=== PATIENT | female | born 1930 | race Caucasian/White ===

== ENCOUNTER 2017-07-09 09:00 | Inpatient (IN) | payer OTHER, BC ==
--- NOTE | 2017-07-09 09:16 | PDOC ---
Attending Attestation - HPI HPI: 07/09/17 10:07 The patient is an 86 year old female, with a significant past medical history of Afib, HTN, HLD, and pleural effusion, who presents with SOB and nausea since this morning. She reportedly woke up this morning to use the bathroom and when she noticed some increased SOB. She reports being able to walk several blocks using her walker before experiencing SOB. No recent travel or sick contacts. Reports a recent procedure about 2 months ago that would "help prevent a stroke. " PCP: Dr. Yang [employer] Field Service Technician: Dr. Vitale - Physicial Exam PE: 07/09/17 10:09 Vitals: Triage vital signs reviewed General Appearance: No acute distress, well nourished, well developed Head: Atraumatic Neck: Supple; No nuchal rigidity Chest Wall: Nontender Cardiac: Regular rate and rhythm, no murmurs, no rubs, no gallops Lungs: Clear to auscultation bilateral, good air movement bilaterally Abdomen: Soft, nondistended, normal bowel sounds, nontender to palpation Genitourinary: Rectal: Exam deferred Extremities: (+) 1+ edema to bilateral lower extremity. Full range of motion to all extremities, no cyanosis, clubbing Skin: Warm and dry, no rashes or lesions, no rash, no petechiae Neuro: AOX3; Cranial Nerves 2-12 grossly intact, Strength intact to all extremities, Sensation intact to all extremities, gait normal Psych: Normal mood, normal affect - Medical Decision Making 07/09/17 10:09 Documentation prepared by Deanna Manning, acting as medical technologist prn for Elie Wiley MD, 07/09/17 11:12 Dr. Arriaga was paged requesting a call back to discuss admission. <Deanna Manning - Last Filed: 07/09/17 11:12> - Resident Resident Name: Reyna Espinosa - ED Attending Attestation I have performed the following: I have examined & evaluated the patient, The case was reviewed & discussed with the resident, I agree w/resident's findings & plan, Exceptions are as noted - Medical Decision Making 07/09/17 14:49 History and examination consistent with CHF exacerbation. Given that patient is very symptomatic not on any diuretics we'll treat with 20 mg Lasix observe in hospital overnight and reassess <Inez,Elie - Last Filed: 07/09/17 14:49>
--- NOTE | 2017-07-09 09:57 | PDOC ---
History of Present Illness - General Chief Complaint: Shortness of Breath Stated Complaint: SOB Time Seen by Provider: 07/09/17 09:06 - History of Present Illness Initial Comments: 07/09/17 09:45 86yo woman with PMH of Afib, HTN, HLD, pleural effusion who presents with sob and nausea since this morning. No emesis. She woke up this morning to use the bathroom and when getting back into bed she reports dyspnea and accessory muscle use. Reports mild dry cough. Denies fever, chills, CP, ELIAS. No diarrhea or melena. At baseline she can walk several blocks using her walker without dyspnea. No recent travel or sick contacts. PSx: Watchman procedure approximately 2 months ago PCP: Dr. Yang Cards: Dr. Vitale Past History - Travel Traveled outside of the country in the last 30 days: No Close contact w/someone who was outside of country & ill: No - Past Medical History Allergies/Adverse Reactions: Allergies Allergy/AdvReac Type Severity Reaction Status Date / Time Penicillins Allergy Verified 07/09/17 09:30 Home Medications: Ambulatory Orders Acetaminophen 650 mg PO ASDIR 07/09/17 Amiodarone HCl 100 mg PO DAILY 07/09/17 Amlodipine Besylate 5 mg PO DAILY 07/09/17 Aspirin [ASA -] 81 mg PO DAILY 07/09/17 Bisacodyl [Dulcolax -] 5 mg PO ONCE 07/09/17 Cholecalciferol (Vitamin D3) [Vitamin D3] 50,000 unit PO MONTHLY 07/09/17 Clopidogrel Bisulfate [Clopidogrel] 75 mg PO DAILY 07/09/17 Cyanocobalamin (Vitamin B-12) [Vitamin B-12] 1,000 mcg PO DAILY 07/09/17 Ferrous Sulfate 325 mg PO BID 07/09/17 Folic Acid 1 mg PO DAILY 07/09/17 Levothyroxine [Synthroid -] 25 mcg PO ASDIR 07/09/17 Mirtazapine 30 mg PO DAILY 07/09/17 Nebivolol HCl [Bystolic] 2.5 mg PO DAILY 07/09/17 Nystatin [Nyamyc] 1 appful TP ASDIR 07/09/17 Olmesartan Medoxomil 40 mg PO DAILY 07/09/17 Omeprazole 40 mg PO DAILY 07/09/17 Pravastatin Sodium [Pravachol (Nf)] 20 mg PO HS 07/09/17 Rivastigmine 1 each TD DAILY 07/09/17 Vit C/E/Zn/Coppr/Lutein/Zeaxan [Preservision Areds 2 Softgel] 1 each PO BID 12/19 Cardiac Disorders: Yes (A-FIB) COPD: No DVT: No HTN: Yes Hypercholesterolemia: Yes Liver Disease: Yes (PLEURAL EFFUSION) Other medical history: HYPONATREMIA - Surgical History Cardiac Surgery: Yes - Immunization History Immunization Up to Date: Yes - Suicide/Smoking/Psychosocial Hx Smoking History: Former smoker Have you smoked in the past 12 months: No If you are a former smoker, when did you quit?: 30YRS Information on smoking cessation initiated: No Hx Alcohol Use: No Drug/Substance Use Hx: No Substance Use Type: None Review of Systems - Review of Systems Able to Perform ROS?: Yes Respiratory: Yes: Symptoms reported, Cough All Other Systems: Reviewed and Negative *Physical Exam - Vital Signs Last Vital Signs Temp Pulse Resp BP Pulse Ox 98.4 F 74 16 153/55 81 L 07/09/17 09:30 07/09/17 09:30 07/09/17 09:30 07/09/17 09:30 07/09/17 09:30 - Physical Exam General Appearance: Yes: Nourished, Appropriately Dressed HEENT: positive: Normal ENT Inspection Neck: positive: Supple Respiratory/Chest: positive: Lungs Clear, Normal Breath Sounds. negative: Accessory Muscle Use Cardiovascular: positive: Regular Rhythm, Regular Rate, S1, S2. negative: JVD Vascular Pulses: Dorsalis-Pedis (R): 2+, Doralis-Pedis (L): 2+ Gastrointestinal/Abdominal: positive: Normal Bowel Sounds, Flat Extremity: positive: Normal Inspection Neurologic: positive: Alert, Normal Mood/Affect Heart Score/ECG Review - ECG Impressions Normal ECG: Yes Comment:: 07/09/17 10:29 NSR, rate 69, normal axis and intervals, no ischemic changes, QTc 450 ED Treatment Course - LABORATORY CBC & Chemistry Diagram: 07/09/17 09:10 07/09/17 09:10 Medical Decision Making - Medical Decision Making 07/09/17 09:58 86yo woman with presents with acute onset dyspnea and hypoxemia. She is requiring 4L O2 to maintain 93% pSa02. Will order CXR to r/o pulmonary etiology and basic cardiology work-up. -CXR -CMP, CBC -EKG, Trop, BNP 07/09/17 18:11 CXR revealed bilateral pleural effusions and changes consist with CHF exacerbation. Will give 20mg lasix for diuresis. Discussed with Dr. Barnes. Patient is symptomatic with CHF exacerbation, and will be admitted for further management. *DC/Admit/Observation/Transfer Diagnosis at time of Disposition: CHF exacerbation - Discharge Dispostion Condition at time of disposition: Stable Admit: Yes - Referrals - Patient Instructions - Post Discharge Activity
[2017-07-09 10:11] LABS: BASO % 0.5 % (0-2.0); EOS % 0.1 % (0-4.5); HEMATOCRIT 24.8 % (32.4-45.2); HEMOGLOBIN 8.1 GM/dL (10.7-15.3); LYMPH % 3.4 % (8-40); MCH 32.6 pg (25.7-33.7); MCHC 32.7 g/dl (32.0-36.0); MEAN CELL VOLUME 99.8 fl (80-96); MEAN PLT VOLUME 8.7 fl (7.5-11.1); MONO % 7.5 % (3.8-10.2); NEUT % 88.5 % (42.8-82.8); PLATELET COUNT 319 K/MM3 (134-434); RBC 2.49 M/mm3 (3.60-5.2); RDW 14.2 % (11.6-15.6); WHITE BLOOD COUNT 14.9 K/mm3 (4.0-10.0)
[2017-07-09 11:04] LABS: ALBUMIN 3.5 g/dl (3.4-5.0); ANION GAP 8 (8-16); BILIRUBIN,TOTAL 0.5 mg/dL (0.2-1.0); BLOOD UREA NITROGEN 20 mg/dL (7-18); CALCIUM 8.2 mg/dL (8.5-10.1); CHLORIDE 97 mmol/L (98-107); CO2 26 mmol/L (21-32); CREATININE 1.3 mg/dL (0.55-1.02); GLUCOSE,RANDOM 112 mg/dL (74-106); POTASSIUM 4.6 mmol/L (3.5-5.1); SGOT/AST 63 U/L (15-37); SGPT/ALT 65 U/L (12-78); SODIUM 131 mmol/L (136-145); TOT PROT 6.7 g/dl (6.4-8.2)
[2017-07-09 11:07] LABS: ALK PHOS 158 U/L (45-117)
[2017-07-09] MEDS ORDERED: FUROSEMIDE 40 MG/4 ML INJECTABLE VIAL IVPUSH ONE (11:20)
[2017-07-09] MEDS ORDERED: FUROSEMIDE 40 MG/4 ML INJECTABLE VIAL ONE (11:41)
--- NOTE | 2017-07-09 16:48 | CON.CARD ---
Consult Consult Specialty:: cardio Referred by:: rambo Reason for Consultation:: chf - History of Present Illness Chief Complaint: sob History of Present Illness: 86 yo female with sob. felt in USOH yesterday, no sob. then overnight when woke to urinate per usual routine, she was breathing heavy when going back to bed. then became more sob and could not sleep. no cp. admits to chicken soup in [facility] facility and roast beef for dinner--? if salty. felt upset stomach/nausea after denies melena/BRBPR. no palpitations urinated a lot after iv lasix here, no more sob PAF--s/p watchman few weeks ago moderate HTN HPL UGIB (duod ulcer) 05/20 PPM - Alcohol/Substance Use Hx Alcohol Use: No - Smoking History Smoking history: Former smoker Have you smoked in the past 12 months: No If you are a former smoker, when did you quit?: 30YRS Home Medications - Allergies Allergies/Adverse Reactions: Allergies Allergy/AdvReac Type Severity Reaction Status Date / Time Penicillins Allergy Verified 07/09/17 09:30 - Home Medications Home Medications: Ambulatory Orders Acetaminophen 650 mg PO ASDIR 07/09/17 Amiodarone HCl 100 mg PO DAILY 07/09/17 Amlodipine Besylate 5 mg PO DAILY 07/09/17 Aspirin [ASA -] 81 mg PO DAILY 07/09/17 Bisacodyl [Dulcolax -] 5 mg PO ONCE 07/09/17 Cholecalciferol (Vitamin D3) [Vitamin D3] 50,000 unit PO MONTHLY 07/09/17 Clopidogrel Bisulfate [Clopidogrel] 75 mg PO DAILY 07/09/17 Cyanocobalamin (Vitamin B-12) [Vitamin B-12] 1,000 mcg PO DAILY 07/09/17 Ferrous Sulfate 325 mg PO BID 07/09/17 Folic Acid 1 mg PO DAILY 07/09/17 Levothyroxine [Synthroid -] 25 mcg PO ASDIR 07/09/17 Mirtazapine 30 mg PO DAILY 07/09/17 Nebivolol HCl [Bystolic] 2.5 mg PO DAILY 07/09/17 Nystatin [Nyamyc] 1 appful TP ASDIR 07/09/17 Olmesartan Medoxomil 40 mg PO DAILY 07/09/17 Omeprazole 40 mg PO DAILY 07/09/17 Pravastatin Sodium [Pravachol (Nf)] 20 mg PO HS 07/09/17 Rivastigmine 1 each TD DAILY 07/09/17 Vit C/E/Zn/Coppr/Lutein/Zeaxan [Preservision Areds 2 Softgel] 1 each PO BID 12/19 Family Disease History - Family Disease History Family History: Denies (no known cmp) Review of Systems - Review of Systems Constitutional: denies: Chills, Fever Eyes: denies: Eye Pain HENT: denies: Nasal Congestion Neck: denies: Stiffness Cardiovascular: denies: Palpitations Respiratory: reports: Orthopnea, PND. denies: Wheezing Gastrointestinal: denies: Diarrhea, Rectal Bleeding Genitourinary: denies: Burning, Hematuria Musculoskeletal: denies: Muscle Pain Integumentary: denies: Rash Neurological: denies: Numbness, Seizure, Syncope Endocrine: denies: Excessive Sweating Hematology/Lymphatic: denies: Excessive Bleeding Vital Signs: Vital Signs Temperature 98.8 F 07/09/17 14:36 Pulse Rate 65 07/09/17 14:36 Respiratory Rate 20 07/09/17 14:36 Blood Pressure 126/44 07/09/17 14:36 O2 Sat by Pulse Oximetry (%) 92 L 07/09/17 13:20 Constitutional: Yes: Well Nourished, No Distress Eyes: No: Sclera Icterus HENT: No: Nasal Congestion Neck: No: Decreased ROM Respiratory: Yes: CTA Bilaterally, Diminished (bases), Rales (bases). No: Accessory Muscle Use, Wheezes Gastrointestinal: Yes: Normal Bowel Sounds. No: Distention, Hepatomegaly, Palpable Mass, Tenderness Cardiovascular: Yes: Regular Rate and Rhythm JVD: No Carotid Bruit: No PMI: Non-Displaced Heart Sounds: Yes: S1, S2. No: Gallop Murmur: Yes: Systolic Murmur (2/6 early DESI lusb). No: Diastolic Murmur Musculoskeletal: Yes: Other (No kyphosis) Extremities: No: Cool, Cyanosis Edema: No Peripheral Pulses: 2+ Left Carotid, 2+ Right Carotid, 2+ Left Doralis Pedis, 2+ Right Dorsalis Pedis Integumentary: No: Jaundice Neurological: Yes: Alert, Oriented (x3) Psychiatric: No: Agitated - Other Data Labs, Other Data: CBC, BMP 07/09/17 09:10 07/09/17 09:10 Troponin, BNP 07/09/17 07/09/17 09:10 09:10 Troponin I < 0.02 B-Natriuretic Peptide 7944.52 H Troponin, BNP 07/09/17 07/09/17 09:10 09:10 Troponin I < 0.02 B-Natriuretic Peptide 7944.52 H Selected Entries 07/09/17 07/09/17 09:30 13:20 O2 Sat by Pulse 81 L 92 L Oximetry (%) Oxygen Flow 4 Rate Laboratory Tests 07/09/17 07/09/17 07/09/17 09:10 09:10 09:10 WBC 14.9 H Hgb 8.1 L Plt Count 319 Sodium 131 L Potassium 4.6 Creat Clearance w eGFR 38.84 AST 63 H ALT 65 B-Natriuretic Peptide 7944.52 H Assessment/Plan Echo 12/2016: 1. The left ventricular size is normal. 2. Overall left ventricular systolic function is normal with, an EF between 55 - 65 %. 3. The diastolic filling pattern is normal. 4. No regional wall motion abnormalities were noted within visualized territories. 5. The right ventricle is normal in size and function. 6. Left atrium is mildly dilated by volume. 7. Moderate aortic stenosis with peak/mean pressure gradient of 35 / 20 mmHg. LINDA by continuity equation is 0.8 cm-squared, however LINDA by planimetry appears > 1.0 cm-squared. 8. Mild mitral regurgitation is present. 9. Unable to estimate RVSP due to inadequate TR jet spectral doppler profile. CXR: vascular engorgement/redistrib pattern with intraalveolar edema and small bilat effusions--c/w chf ekg: nsr, normal axis, no q's or ST-T abn 06/25: 131 lbs (from 122 in 03/21), bp 142/62 SOB, hypoxia, acute HFpEF: -initially with sat 81%, then came up to 92% on 4L oxygen by NC -? component of sx's being driven by (fairly acute?) anemia -bnp 7900 (gfr 30s) -cxr c/w chf -likely chf sec to: (a) incr'd po fluids intake x few days; (b) ? hi Na meal on DOA; (c) anemia (acute?); and (d) moderate (vs mod-severe) -received lasix 20mg IVP x 1 earlier today, urinated briskly per pt--sob resolved -continue lasix 20 iv qd for now--close f/u of hyponatremia and renal fxn -ecg non-ischemia--trop neg x 1--serial enzymes ordered anemia: -hgb 8s here, from 10.7 as outpt on 05/21 -r/o occult GIB sec to xarelto started post-Watchman implant -of note, pt has h/o UGIB in 05/20 (in [place]), with duod ulcer seen on EGD, presumably was treated--off AC since then until recently -stool guaiacs -consider GI consult--defer to dr ricks -AC mgmt as disc'd below -will consider PRBCs transfusion if hgb <8 Paroxysmal atrial fibrillation -H/O PAFIB, WITH EVIDENCE OF SUBOPTIMAL HR CONTROL ON PPM CHECK 06/20 OUTSIDE MD OFFICE, PER HIS NOTES. -HAS BEEN ON AMIO FROM BEFORE, NO PAF SEEN ON PM CHECK IN OFFICE (TSH, LFT'S WNL ON AMIO 03/21). -S/P WATCHMAN ([place] appendage closure device) 05/23. POSTOP WATCHMAN AC PROTOCOL: SHE HAS COMPLETED 6 WKS XARELTO + ASA, NOW IN MIDST OF 6 WKS ASA + PLAVIX, THEN ASA 81 INDEFINITELY. -CONTINUE ASA 81 AND PLAVIX FOR NOW -HERE WITH ANEMIA (NEW VS 03/21)--IF SIGNS OF GIB ON W/U, WILL HAVE LOW THRESHOLD TO HOLD PLAVIX AT A MINIMUM, AND WILL D/W EP IN THAT EVENT hyponatremia: -h/o admits for hyponatremia in past (prior to moving to [place]), treated by free water restriction. -told to increase water intake 4 days ago to optimize creatinine prior to CTA of carotids. -Na mildly low here -monitor daily labs with lasix CKD: -creat runs 1.3 at baseline, when dry. has been 1.0 at times in recent months -1.3 here, stable Calcific aortic stenosis -MODERATE WITH 12/19 STUDY GRADIENTS 35/20 AND PLANIMETRY LINDA >1.0, with LINDA by continuity equation estimated at <1.0...doubt severe . -PRESERVED S2 SPLIT AUDIBLE ON EXAM. -NOW WITH NEW HFPEF--SINCE THE ACUTE ANEMIA MAY BE THE TRIGGER, WOULD NOT PURSUE AVR AT THIS POINT. OBSERVE CLINICAL COURSE AND FURTHER RECS TO FOLLOW Essential hypertension -CHRONICALLY SUBOPTIMAL CONTROL PER PT, CONFIRMED ON READINGS WITH DR BLANCA ISRAEL. -IMPROVED SINCE LOSARTAN CHANGED TO OLMESARTAN, DILT CHANGED TO AMLODIPINE, AND BYSTOLIC 2.5MG ADDED (HCTZ STOPPED FOR MILD OFELIA/LOW NA, POLYURIA.) -CONTINUE HOME MEDS. Pure hypercholesterolemia -PRIMARY PREVENTION, ELDERLY. -TOLERATING PRAVA 20 FROM BEFORE. -SAME MEDS Rhythm disorder -S/P PPM (B SCI, DUAL CHAMBER)--FOR TACHY-NOAM. -08/21 OFFICE CHECK: RARE, BRIEF (3 BEAT MAX) PAT. NORMAL FXN. 66% V-PACED--AV SEARCH TURNED ON.
--- NOTE | 2017-07-09 22:38 | HP ---
Admitting History and Physical - Admission Chief Complaint: dyspnea History of Present Illness: 07/09/17 09:45 86yo woman with PMH of Afib, HTN, HLD, pleural effusion who presents with sob and nausea since this morning. No emesis. She woke up this morning to use the bathroom and when getting back into bed she reports dyspnea and accessory muscle use. Reports mild dry cough. Denies fever, chills, CP, ELIAS. No diarrhea or melena. At baseline she can walk several blocks using her walker without dyspnea. No recent travel or sick contacts. PSx: Watchman procedure approximately 2 months ago History Source: Patient, Family Member, Medical Record Limitations to Obtaining History: No Limitations, Clinical Condition - Past Medical History Cardiovascular: Yes: AFIB, HTN, Hyperlipdemia Hepatobiliary: Yes: Cholelithiasis - Smoking History Smoking history: Former smoker Have you smoked in the past 12 months: No If you are a former smoker, when did you quit?: 30YRS - Alcohol/Substance Use Hx Alcohol Use: No - Social History Usual Living Arrangement: Yes: Assisted Living ADL: Independent Home Medications - Allergies Allergies/Adverse Reactions: Allergies Allergy/AdvReac Type Severity Reaction Status Date / Time Penicillins Allergy Verified 07/09/17 09:30 - Home Medications Home Medications: Ambulatory Orders Acetaminophen 650 mg PO ASDIR 07/09/17 Amiodarone HCl 100 mg PO DAILY 07/09/17 Amlodipine Besylate 5 mg PO DAILY 07/09/17 Aspirin [ASA -] 81 mg PO DAILY 07/09/17 Bisacodyl [Bisacodyl -] 5 mg PO ONCE 07/09/17 Cholecalciferol (Vitamin D3) [Vitamin D3] 50,000 unit PO MONTHLY 07/09/17 Cyanocobalamin (Vitamin B-12) [Vitamin B-12] 1,000 mcg PO DAILY 07/09/17 Ferrous Sulfate 325 mg PO BID 07/09/17 Folic Acid 1 mg PO DAILY 07/09/17 Levothyroxine [Synthroid -] 25 mcg PO ASDIR 07/09/17 Mirtazapine 30 mg PO DAILY 07/09/17 Nebivolol HCl [Bystolic] 2.5 mg PO DAILY 07/09/17 Nystatin [Nyamyc] 1 appful TP ASDIR 07/09/17 Olmesartan Medoxomil 40 mg PO DAILY 07/09/17 Omeprazole 40 mg PO DAILY 07/09/17 Pravastatin Sodium [Pravachol -] 20 mg PO HS 07/09/17 Rivastigmine 1 each TD DAILY 07/09/17 Vit C/E/Zn/Coppr/Lutein/Zeaxan [Preservision Areds 2 Softgel] 1 each PO BID 12/19 Review of Systems - Review of Systems Constitutional: reports: Weakness Eyes: reports: No Symptoms HENT: reports: No Symptoms Neck: reports: No Symptoms Cardiovascular: reports: Shortness of Breath Respiratory: reports: Cough, Exercise Intolerance, SOB Gastrointestinal: reports: No Symptoms Genitourinary: reports: No Symptoms Breasts: reports: No Symptoms Reported Musculoskeletal: reports: No Symptoms Integumentary: reports: No Symptoms Neurological: reports: No Symptoms Endocrine: reports: No Symptoms Hematology/Lymphatic: reports: No Symptoms Psychiatric: reports: No Symptoms Physical Examination Vital Signs: Vital Signs Temperature 99.9 F H 07/09/17 19:00 Pulse Rate 67 07/09/17 19:00 Respiratory Rate 20 07/09/17 19:00 Blood Pressure 130/46 07/09/17 19:00 O2 Sat by Pulse Oximetry (%) 93 L 07/09/17 17:01 Constitutional: Yes: No Distress, Calm, Cachectic, Thin Eyes: Yes: Conjunctiva Clear, EOM Intact HENT: Yes: Atraumatic, Normocephalic Neck: Yes: Supple, Trachea Midline Cardiovascular: Yes: Regular Rate and Rhythm Respiratory: Yes: Diminished (at bases), On Nasal O2 Gastrointestinal: Yes: WNL Musculoskeletal: Yes: WNL Extremities: No: Deformity Edema: No Peripheral Pulses: Left Radial: 1+, Right Radial: 1+, Left Doralis Pedis: 1+, Right Dorsalis Pedis: 1+, Left Femoral: 1+, Right Femoral: 1+ Integumentary: Yes: WNL Neurological: Yes: Alert, Oriented, Confusion Psychiatric: Yes: Alert Labs: CBC, BMP 07/09/17 09:10 07/09/17 09:10 Problem List - Problems (1) CHF exacerbation Code(s): I50.9 - HEART FAILURE, UNSPECIFIED (2) CAD (coronary artery disease) Code(s): I25.10 - ATHSCL HEART DISEASE OF [place] CORONARY ARTERY W/O ANG PCTRS (3) A-fib Code(s): I48.91 - UNSPECIFIED ATRIAL FIBRILLATION (4) Paroxysmal atrial fibrillation Code(s): I48.0 - PAROXYSMAL ATRIAL FIBRILLATION (5) Anemia Code(s): D64.9 - ANEMIA, UNSPECIFIED Qualifiers: Bone marrow failure anemia type: aplastic anemia, idiopathic (6) Chronic kidney disease (CKD) Code(s): N18.9 - CHRONIC KIDNEY DISEASE, UNSPECIFIED (7) HTN (hypertension) Code(s): I10 - ESSENTIAL (PRIMARY) HYPERTENSION (8) HLD (hyperlipidemia) Code(s): E78.5 - HYPERLIPIDEMIA, UNSPECIFIED (9) Aortic stenosis Code(s): I35.0 - NONRHEUMATIC AORTIC (VALVE) STENOSIS
[2017-07-09] MEDS ORDERED: VALSARTAN 160 MG TABLET (UD) PO SCH (23:00)
[2017-07-09] MEDS ORDERED: ASPIRIN COATED 81 MG TABLET.EC PO SCH (23:00)
[2017-07-09] MEDS: CHOLECALCIFEROL (VITAMIN D3) 1,000 UNIT TABLET (FP) PO SCH (23:46)
[2017-07-09] MEDS: ATORVASTATIN CA 40 MG TABLET (FP) PO SCH (23:46)
[2017-07-09] MEDS: PANTOPRAZOLE 40 MG TABLET (FP) PO SCH (23:46)
[2017-07-09] MEDS: VALSARTAN 80 MG TABLET (UD) PO SCH (23:46)
[2017-07-09] MEDS: FOLIC ACID 1 MG TABLET (FP) PO SCH (23:46)
[2017-07-09] MEDS: AMIODARONE HCL 200 MG TABLET (FP) PO SCH (23:46)
[2017-07-09] MEDS: MIRTAZAPINE 15 MG TABLET (FP) PO SCH (23:47)
[2017-07-09] MEDS: LEVOTHYROXINE NA 25 MCG TABLET (FP) PO SCH (23:47)
[2017-07-09] MEDS: FUROSEMIDE 40 MG/4 ML INJECTABLE VIAL IVPUSH SCH (23:48)
[2017-07-10] MEDS: FUROSEMIDE 40 MG/4 ML INJECTABLE VIAL IVPUSH SCH ×2 (06:22→14:33)
[2017-07-10] MEDS: LEVOTHYROXINE NA 25 MCG TABLET (FP) PO SCH (06:27)
[2017-07-10 07:10] LABS: EOS % 2.3 % (0-4.5); HEMOGLOBIN 7.5 GM/dL (10.7-15.3); LYMPH % 14.1 % (8-40); MCH 32.4 pg (25.7-33.7); MCHC 32.7 g/dl (32.0-36.0); MEAN CELL VOLUME 99.1 fl (80-96); MEAN PLT VOLUME 8.6 fl (7.5-11.1); MONO % 13.8 % (3.8-10.2); NEUT % 68.8 % (42.8-82.8); PLATELET COUNT 276 K/MM3 (134-434); RBC 2.32 M/mm3 (3.60-5.2); RDW 14.2 % (11.6-15.6); WHITE BLOOD COUNT 8.6 K/mm3 (4.0-10.0)
[2017-07-10 07:16] LABS: ANION GAP 6 (8-16); BLOOD UREA NITROGEN 21 mg/dL (7-18); CALCIUM 7.8 mg/dL (8.5-10.1); CHLORIDE 102 mmol/L (98-107); CO2 29 mmol/L (21-32); CREATININE 1.3 mg/dL (0.55-1.02); GLUCOSE,RANDOM 92 mg/dL (74-106); POTASSIUM 3.8 mmol/L (3.5-5.1); SODIUM 137 mmol/L (136-145)
--- NOTE | 2017-07-10 07:44 | EKG ---
Test Reason : Blood Pressure : / mmHG Vent. Rate : 069 BPM Atrial Rate : 069 BPM P-R Int : 194 ms QRS Dur : 082 ms QT Int : 420 ms P-R-T Axes : 061 059 058 degrees QTc Int : 450 ms NORMAL SINUS RHYTHM NORMAL ECG NO PREVIOUS ECGS AVAILABLE Confirmed by Gerald Albarado ([id number]) on 07/09/2017 2:36:22 PM Also confirmed by MD Per, Gerald [id number]), market editor GERALD SIMEON ([id number]) on 07/10/2017 7:44:06 AM Referred By: Confirmed By:Gerald Albarado MD
[2017-07-10] MEDS: VALSARTAN 80 MG TABLET (UD) PO SCH (09:40)
[2017-07-10] MEDS: ASPIRIN COATED 81 MG TABLET.EC PO SCH (09:40)
[2017-07-10] MEDS: FOLIC ACID 1 MG TABLET (FP) PO SCH (09:40)
[2017-07-10] MEDS: PANTOPRAZOLE 40 MG TABLET (FP) PO SCH (09:40)
[2017-07-10] MEDS: AMIODARONE HCL 200 MG TABLET (FP) PO SCH (09:40)
[2017-07-10] MEDS: CHOLECALCIFEROL (VITAMIN D3) 1,000 UNIT TABLET (FP) PO SCH (09:41)
[2017-07-10] MEDS ORDERED: FUROSEMIDE 40 MG/4 ML INJECTABLE VIAL IVPUSH SCH (10:00)
[2017-07-10] MEDS ORDERED: CLOPIDOGREL BISULFATE 75 MG TABLET (FP) PO SCH (10:00)
--- NOTE | 2017-07-10 11:47 | PN ---
Progress Note (short form) - Note Progress Note: s: no cp palps dizzy; sob resolved Current Medications Generic Name Dose Route Start Last Admin Trade Name Freq PRN Reason Stop Dose Admin Amiodarone HCl 100 mg 07/09/17 23:00 07/10/17 09:40 Cordarone - PO 100 mg DAILY JAUN Administration Aspirin 81 mg 07/10/17 10:00 07/10/17 09:40 Ecotrin - PO 81 mg DAILY JAUN Administration Atorvastatin Calcium 40 mg 07/09/17 23:00 07/09/17 23:46 Lipitor - PO 40 mg HS JAUN Administration Bisacodyl 5 mg 07/09/17 22:53 Dulcolax - PO DAILY PRN CONSTIPATION Cholecalciferol 3,000 unit 07/09/17 23:00 07/10/17 09:41 Vitamin D3 - PO 3,000 unit DAILY JAUN Administration Clopidogrel Bisulfate 75 mg 07/10/17 10:00 07/10/17 09:40 Plavix - PO 75 mg DAILY JAUN Administration Folic Acid 1 mg 07/09/17 23:00 07/10/17 09:40 Folic Acid - PO 1 mg DAILY JAUN Administration Furosemide 20 mg 07/09/17 23:00 07/10/17 06:22 Lasix Injection - IVPUSH 20 mg BID@0600,1400 JAUN Administration Levothyroxine Sodium 25 mcg 07/09/17 23:00 07/10/17 06:27 Synthroid - PO 25 mcg DAILY@0700 JAUN Administration Mirtazapine 30 mg 07/09/17 23:00 07/09/17 23:47 Remeron - PO 30 mg HS JAUN Administration Pantoprazole Sodium 40 mg 07/09/17 23:00 07/10/17 09:40 Protonix - PO 40 mg DAILY JAUN Administration Valsartan 80 mg 07/09/17 23:00 07/10/17 09:40 Diovan - PO 80 mg DAILY JAUN Administration Vital Signs Period Temp Pulse Resp BP Sys/Garcia Pulse Ox Last 24 Hr 97.8 F-99.9 F 60-68 16-20 106-142/41-61 92-97 Constitutional: Yes: Well Nourished, No Distress Eyes: No: Sclera Icterus Respiratory: Yes: CTA Bilaterally, Diminished (bases), Rales (bases). No: Accessory Muscle Use, Wheezes Gastrointestinal: Yes: Normal Bowel Sounds. No: Distention, Hepatomegaly, Palpable Mass, Tenderness Cardiovascular: Yes: Regular Rate and Rhythm JVD: No Heart Sounds: Yes: S1, S2. No: Gallop Murmur: Yes: Systolic Murmur (2/6 early DESI lusb). No: Diastolic Murmur Extremities: No: Cool, Cyanosis Edema: No Integumentary: No: Jaundice diaphoresis Neurological: Yes: Alert, Oriented (x3) Psychiatric: No: Agitated - Other Data Labs, Other Data: CBC, BMP 07/10/17 06:15 07/10/17 06:15 Echo 12/2016: 1. The left ventricular size is normal. 2. Overall left ventricular systolic function is normal with, an EF between 55 - 65 %. 3. The diastolic filling pattern is normal. 4. No regional wall motion abnormalities were noted within visualized territories. 5. The right ventricle is normal in size and function. 6. Left atrium is mildly dilated by volume. 7. Moderate aortic stenosis with peak/mean pressure gradient of 35 / 20 mmHg. LINDA by continuity equation is 0.8 cm-squared, however LINDA by planimetry appears > 1.0 cm-squared. 8. Mild mitral regurgitation is present. 9. Unable to estimate RVSP due to inadequate TR jet spectral doppler profile. CXR: vascular engorgement/redistrib pattern with intraalveolar edema and small bilat effusions--c/w chf ekg: nsr, normal axis, no q's or ST-T abn 06/25: 131 lbs (from 122 in 03/21), bp 142/62 a/p: SOB, hypoxia, acute HFpEF: -initially with sat 81%, then came up to 92% on 4L oxygen by NC -? component of sx's being driven by (fairly acute?) anemia -no signs acs, ecg non-ischemic--trop neg x 2 -bnp 7900 (gfr 30s) -cxr c/w chf -likely chf sec to: (a) incr'd po fluids intake x few days; (b) ? hi Na meal on DOA; (c) anemia (acute?); and (d) moderate (vs mod-severe) -received lasix 20mg IVP x 1 earlier today, urinated briskly per pt--sob resolved -continue lasix 20 iv bid for now, likely change to po tomorrow anemia: -hgb 8s here, from 10.7 as outpt on 05/21 -r/o occult GIB sec to xarelto started post-Watchman implant -of note, pt has h/o UGIB in 05/20 (in [place]), with duod ulcer seen on EGD, presumably was treated--off AC since then until recently -stool guaiacs -consider GI consult--defer to dr ricks -AC mgmt as disc'd below -consider PRBCs transfusion since hgb <8 Paroxysmal atrial fibrillation -H/O PAFIB, WITH EVIDENCE OF SUBOPTIMAL HR CONTROL ON PPM CHECK 06/20 OUTSIDE MD OFFICE, PER HIS NOTES. -HAS BEEN ON AMIO FROM BEFORE, NO PAF SEEN ON PM CHECK IN OFFICE (TSH, LFT'S WNL ON AMIO 03/21). -S/P WATCHMAN (LA appendage closure device) 05/23. POSTOP WATCHMAN AC PROTOCOL: SHE HAS COMPLETED 6 WKS XARELTO + ASA, NOW IN MIDST OF 6 WKS ASA + PLAVIX, THEN ASA 81 INDEFINITELY. -CONTINUE ASA 81 AND PLAVIX FOR NOW -HERE WITH ANEMIA (NEW VS 03/21)--IF SIGNS OF GIB ON W/U, WILL HAVE LOW THRESHOLD TO HOLD PLAVIX AT A MINIMUM, AND WILL D/W EP IN THAT EVENT hyponatremia: -h/o admits for hyponatremia in past (prior to moving to [place]), treated by free water restriction. -told to increase water intake 4 days ago to optimize creatinine prior to CTA of carotids. -Na mildly low here -monitor daily labs with lasix CKD: -creat runs 1.3 at baseline, when dry. has been 1.0 at times in recent months -1.3 here, stable Calcific aortic stenosis -MODERATE WITH 12/19 STUDY GRADIENTS 35/20 AND PLANIMETRY LINDA >1.0, with LINDA by continuity equation estimated at <1.0...doubt severe . -PRESERVED S2 SPLIT AUDIBLE ON EXAM. -NOW WITH NEW HFPEF--SINCE THE ACUTE ANEMIA MAY BE THE TRIGGER, WOULD NOT PURSUE AVR AT THIS POINT. OBSERVE CLINICAL COURSE. Essential hypertension -CHRONICALLY SUBOPTIMAL CONTROL -IMPROVED SINCE LOSARTAN CHANGED TO OLMESARTAN, DILT CHANGED TO AMLODIPINE, AND BYSTOLIC 2.5MG ADDED (HCTZ STOPPED FOR MILD OFELIA/LOW NA, POLYURIA.) -CONTINUE HOME MEDS. Pure hypercholesterolemia -PRIMARY PREVENTION, ELDERLY. -TOLERATING PRAVA 20 FROM BEFORE. -SAME MEDS Rhythm disorder -S/P PPM (B SCI, DUAL CHAMBER)--FOR TACHY-NOAM. -08/21 OFFICE CHECK: RARE, BRIEF (3 BEAT MAX) PAT. NORMAL FXN. 66% V-PACED--AV SEARCH TURNED ON.
[2017-07-10] MEDS: MIRTAZAPINE 15 MG TABLET (FP) PO SCH (21:26)
[2017-07-10] MEDS: ATORVASTATIN CA 40 MG TABLET (FP) PO SCH (21:26)
--- NOTE | 2017-07-10 23:07 | PN ---
Progress Note (short form) - Note Progress Note: patient seen and examined in her room daughter at bedside -- all questions and concerns addressed patient in bed comfortable denies SOB at this time Vital Signs Period Temp Pulse Resp BP Sys/Garcia Pulse Ox Last 24 Hr 97.8 F-99 F 60-65 18-20 106-137/41-54 97-99 neck supple no JVD heart S1/S2 Lungs decreased BS both bases left >right no wheezing / rales appreciated abd soft non tender ext no edema CBC, BMP 07/10/17 06:15 07/10/17 06:15 CXR bilat effusion / vascular congestion c/w CHF Echo 12/2016: 1. The left ventricular size is normal. 2. Overall left ventricular systolic function is normal with, an EF between 55 - 65 %. 3. The diastolic filling pattern is normal. 4. No regional wall motion abnormalities were noted within visualized territories. 5. The right ventricle is normal in size and function. 6. Left atrium is mildly dilated by volume. 7. Moderate aortic stenosis with peak/mean pressure gradient of 35 / 20 mmHg. LINDA by continuity equation is 0.8 cm-squared, however LINDA by planimetry appears > 1.0 cm-squared. 8. Mild mitral regurgitation is present. 9. Unable to estimate RVSP due to inadequate TR jet spectral doppler profile. ekg: nsr, normal axis, no q's or ST-T abn Assmt # dyspnea / acute episode of CHF decreased sat on admission - required O2 TNI - negative / EKG no acute changes BNP -7900 / CXR c/w CHF admits dietary indiscretion anemia probable component of Dyspnea Lasix IV BID -- good response follow lytes -- replace as needed # Anemia per cardio note baseline at Hgb 10 on NOAC s/p watchman stool guiac type and cross - transfuse to hgb 10 daughter report had hx of GI bleed in the past ( PUD) # CKD baseline Cr 1.3 responding well to lasix #HTN \ resumed meds have been adjusted per cardio bystolic / amlodipine / benicar as out patient ( currently on valsartan ) #HLD continue with statins / well tolerated follow LFTs # arrhythmia, hx of tachy-audrey s/p PPM cked as out patient via Cardiology Per Cardiology note ---Paroxysmal atrial fibrillation -H/O PAFIB, WITH EVIDENCE OF SUBOPTIMAL HR CONTROL ON PPM CHECK 06/20 OUTSIDE MD OFFICE, PER HIS NOTES. -HAS BEEN ON AMIO FROM BEFORE, NO PAF SEEN ON PM CHECK IN OFFICE (TSH, LFT'S WNL ON AMIO 03/21). -S/P WATCHMAN (LA appendage closure device) 05/23. POSTOP WATCHMAN AC PROTOCOL: SHE HAS COMPLETED 6 WKS XARELTO + ASA, NOW IN MIDST OF 6 WKS ASA + PLAVIX, THEN ASA 81 INDEFINITELY. -CONTINUE ASA 81 AND PLAVIX FOR NOW -HERE WITH ANEMIA (NEW VS 03/21)--IF SIGNS OF GIB ON W/U, WILL HAVE LOW THRESHOLD TO HOLD PLAVIX AT A MINIMUM, AND WILL D/W EP IN THAT EVENT ---Calcific aortic stenosis -MODERATE WITH 12/19 STUDY GRADIENTS 35/20 AND PLANIMETRY LINDA >1.0, with LINDA by continuity equation estimated at <1.0...doubt severe . -PRESERVED S2 SPLIT AUDIBLE ON EXAM. -NOW WITH NEW HFPEF--SINCE THE ACUTE ANEMIA MAY BE THE TRIGGER, WOULD NOT PURSUE AVR AT THIS POINT. OBSERVE CLINICAL COURSE.
[2017-07-11] MEDS: FUROSEMIDE 40 MG/4 ML INJECTABLE VIAL IVPUSH SCH (06:50)
[2017-07-11] MEDS: LEVOTHYROXINE NA 25 MCG TABLET (FP) PO SCH (06:50)
[2017-07-11 07:42] LABS: BASO % 1.4 % (0-2.0); EOS % 3.3 % (0-4.5); HEMATOCRIT 26.5 % (32.4-45.2); HEMOGLOBIN 8.7 GM/dL (10.7-15.3); LYMPH % 11.9 % (8-40); MCH 32.7 pg (25.7-33.7); MCHC 32.8 g/dl (32.0-36.0); MEAN CELL VOLUME 99.9 fl (80-96); MEAN PLT VOLUME 8.5 fl (7.5-11.1); MONO % 11.5 % (3.8-10.2); NEUT % 71.9 % (42.8-82.8); PLATELET COUNT 322 K/MM3 (134-434); RBC 2.65 M/mm3 (3.60-5.2); RDW 13.7 % (11.6-15.6); WHITE BLOOD COUNT 10.2 K/mm3 (4.0-10.0)
[2017-07-11 07:54] LABS: ANION GAP 8 (8-16); BLOOD UREA NITROGEN 28 mg/dL (7-18); CALCIUM 8.1 mg/dL (8.5-10.1); CHLORIDE 101 mmol/L (98-107); CO2 29 mmol/L (21-32); CREATININE 1.7 mg/dL (0.55-1.02); GLUCOSE,RANDOM 89 mg/dL (74-106); MAGNESIUM 2.3 mg/dL (1.8-2.4); POTASSIUM 4.2 mmol/L (3.5-5.1); SODIUM 138 mmol/L (136-145)
[2017-07-11] MEDS: CHOLECALCIFEROL (VITAMIN D3) 1,000 UNIT TABLET (FP) PO SCH (10:24)
[2017-07-11] MEDS: AMIODARONE HCL 200 MG TABLET (FP) PO SCH (10:24)
[2017-07-11] MEDS: ASPIRIN COATED 81 MG TABLET.EC PO SCH (10:24)
[2017-07-11] MEDS: PANTOPRAZOLE 40 MG TABLET (FP) PO SCH (10:25)
[2017-07-11] MEDS: VALSARTAN 80 MG TABLET (UD) PO SCH (10:25)
[2017-07-11] MEDS: FOLIC ACID 1 MG TABLET (FP) PO SCH (10:25)
--- NOTE | 2017-07-11 10:56 | PN ---
Progress Note (short form) - Note Progress Note: s: no cp palps dizzy; sob resolved Current Medications Generic Name Dose Route Start Last Admin Trade Name Freq PRN Reason Stop Dose Admin Amiodarone HCl 100 mg 07/09/17 23:00 07/11/17 10:24 Cordarone - PO 100 mg DAILY JAUN Administration Aspirin 81 mg 07/10/17 10:00 07/11/17 10:24 Ecotrin - PO 81 mg DAILY JAUN Administration Atorvastatin Calcium 40 mg 07/09/17 23:00 07/10/17 21:26 Lipitor - PO 40 mg HS JAUN Administration Bisacodyl 5 mg 07/09/17 22:53 Dulcolax - PO DAILY PRN CONSTIPATION Cholecalciferol 3,000 unit 07/09/17 23:00 07/11/17 10:24 Vitamin D3 - PO 3,000 unit DAILY JAUN Administration Folic Acid 1 mg 07/09/17 23:00 07/11/17 10:25 Folic Acid - PO 1 mg DAILY JAUN Administration Levothyroxine Sodium 25 mcg 07/09/17 23:00 07/11/17 06:50 Synthroid - PO 25 mcg DAILY@0700 JAUN Administration Mirtazapine 30 mg 07/09/17 23:00 07/10/17 21:26 Remeron - PO 30 mg HS JAUN Administration Pantoprazole Sodium 40 mg 07/09/17 23:00 07/11/17 10:25 Protonix - PO 40 mg DAILY JAUN Administration Valsartan 80 mg 07/09/17 23:00 07/11/17 10:25 Diovan - PO 80 mg DAILY JAUN Administration Vital Signs Period Temp Pulse Resp BP Sys/Garcia Pulse Ox Last 24 Hr 98.0 F-99.0 F 61-91 18-20 114-132/40-53 99-99 Constitutional: Yes: Well Nourished, No Distress Eyes: No: Sclera Icterus Respiratory: Yes: CTA Bilaterally. No: Accessory Muscle Use, Wheezes Gastrointestinal: Yes: Normal Bowel Sounds. No: Distention, Hepatomegaly, Palpable Mass, Tenderness Cardiovascular: Yes: Regular Rate and Rhythm JVD: No Heart Sounds: Yes: S1, S2. No: Gallop Murmur: Yes: Systolic Murmur (2/6 early DESI lusb). No: Diastolic Murmur Extremities: No: Cool, Cyanosis Edema: No Integumentary: No: Jaundice diaphoresis Neurological: Yes: Alert, Oriented (x3) Psychiatric: No: Agitated - Other Data Labs, Other Data: CBC, BMP 07/11/17 06:30 07/11/17 06:30 Echo 12/2016: 1. The left ventricular size is normal. 2. Overall left ventricular systolic function is normal with, an EF between 55 - 65 %. 3. The diastolic filling pattern is normal. 4. No regional wall motion abnormalities were noted within visualized territories. 5. The right ventricle is normal in size and function. 6. Left atrium is mildly dilated by volume. 7. Moderate aortic stenosis with peak/mean pressure gradient of 35 / 20 mmHg. LINDA by continuity equation is 0.8 cm-squared, however LINDA by planimetry appears > 1.0 cm-squared. 8. Mild mitral regurgitation is present. 9. Unable to estimate RVSP due to inadequate TR jet spectral doppler profile. CXR: vascular engorgement/redistrib pattern with intraalveolar edema and small bilat effusions--c/w chf ekg: nsr, normal axis, no q's or ST-T abn 06/25: 131 lbs (from 122 in 03/21), bp 142/62 a/p: SOB, hypoxia, acute HFpEF: -initially with sat 81%, then came up to 92% on 4L oxygen by NC -? component of sx's being driven by (fairly acute?) anemia -no signs acs, ecg non-ischemic--trop neg x 2 -bnp 7900 (gfr 30s) -cxr c/w chf -likely chf sec to: (a) incr'd po fluids intake x few days; (b) ? hi Na meal on DOA; (c) anemia (acute?); and (d) moderate (vs mod-severe) -after a few doses of lasix iv 20mg pt's sob improved and lung exam improved. labs show increase bun/cr so likely at dry wt now. will dc lasix. anemia: -hgb 8s here, from 10.7 as outpt on 05/21 -r/o occult GIB sec to xarelto started post-Watchman implant -of note, pt has h/o UGIB in 05/20 (in [place]), with duod ulcer seen on EGD, presumably was treated--off AC since then until recently -holding plavix as disc'd below Paroxysmal atrial fibrillation -H/O PAFIB, WITH EVIDENCE OF SUBOPTIMAL HR CONTROL ON PPM CHECK 06/20 OUTSIDE MD OFFICE, PER HIS NOTES. -HAS BEEN ON AMIO FROM BEFORE, NO PAF SEEN ON PM CHECK IN OFFICE (TSH, LFT'S WNL ON AMIO 03/21). -S/P WATCHMAN (LA appendage closure device) 05/23. POSTOP WATCHMAN AC PROTOCOL: SHE HAS COMPLETED 6 WKS XARELTO + ASA, NOW IN MIDST OF 6 WKS ASA + PLAVIX, THEN ASA 81 INDEFINITELY. -Given her anemia/drop in hgb, case d/w EP and it is ok to stop plavix at this time and cont with just asa 81. hyponatremia: -h/o admits for hyponatremia in past (prior to moving to [place]), treated by free water restriction. -told to increase water intake 4 days ago to optimize creatinine prior to CTA of carotids. -Na mildly low here -monitor daily labs with lasix CKD: -creat runs 1.3 at baseline, when dry. has been 1.0 at times in recent months -up a bit today, likely from diuresis, will dc lasix, monitor trend Calcific aortic stenosis -MODERATE WITH 12/19 STUDY GRADIENTS 35/20 AND PLANIMETRY LINDA >1.0, with LINDA by continuity equation estimated at <1.0...doubt severe . -PRESERVED S2 SPLIT AUDIBLE ON EXAM. -NOW WITH NEW HFPEF--SINCE THE ACUTE ANEMIA MAY BE THE TRIGGER, WOULD NOT PURSUE AVR AT THIS POINT. OBSERVE CLINICAL COURSE. Essential hypertension -CHRONICALLY SUBOPTIMAL CONTROL -IMPROVED SINCE LOSARTAN CHANGED TO OLMESARTAN, DILT CHANGED TO AMLODIPINE, AND BYSTOLIC 2.5MG ADDED (HCTZ STOPPED FOR MILD OFELIA/LOW NA, POLYURIA.) -CONTINUE HOME MEDS. Pure hypercholesterolemia -PRIMARY PREVENTION, ELDERLY. -TOLERATING PRAVA 20 FROM BEFORE. -SAME MEDS Rhythm disorder -S/P PPM (B SCI, DUAL CHAMBER)--FOR TACHY-NOAM. -08/21 OFFICE CHECK: RARE, BRIEF (3 BEAT MAX) PAT. NORMAL FXN. 66% V-PACED--AV SEARCH TURNED ON.
--- NOTE | 2017-07-11 12:23 | PN ---
Progress Note (short form) - Note Progress Note: In bed comforable denies SOB at this time Discussed case with daughter - need for transfusion and continued A/c ( ASA only ) due to s/p watchman per cardio Vital Signs Period Temp Pulse Resp BP Sys/Garcia Pulse Ox Last 24 Hr 97.8 F-99 F 60-65 18-20 106-137/41-54 97-99 neck supple no JVD heart S1/S2 Lungs decreased BS both bases left >right no wheezing / rales appreciated abd soft non tender ext no edema CBC, BMP 07/11/17 06:30 07/11/17 06:30 mild inc in Cr 2/2 lasix will hold IV lasix CXR Echo 12/2016: 1. The left ventricular size is normal. 2. Overall left ventricular systolic function is normal with, an EF between 55 - 65 %. 3. The diastolic filling pattern is normal. 4. No regional wall motion abnormalities were noted within visualized territories. 5. The right ventricle is normal in size and function. 6. Left atrium is mildly dilated by volume. 7. Moderate aortic stenosis with peak/mean pressure gradient of 35 / 20 mmHg. LINDA by continuity equation is 0.8 cm-squared, however LINDA by planimetry appears > 1.0 cm-squared. 8. Mild mitral regurgitation is present. 9. Unable to estimate RVSP due to inadequate TR jet spectral doppler profile. Assmt # dyspnea / acute episode of CHF decreased sat on admission - required O2 TNI - negative / EKG no acute changes BNP -7900 / CXR c/w CHF admits dietary indiscretion anemia probable component of Dyspnea Lasix IV BID -- good response now with in Cr -- will hold IV lasix follow lytes -- replace as needed # Anemia per cardio note baseline at Hgb 10 on NOAC s/p watchman stool guiac pending type and cross - transfuse to hgb 10 hgb 8.7 (mild hemo-concentrated) will transfuse 1 unit pRBC daughter called - case discussed agrees with transfusion hx of GI bleed in the past GI consult -- Dr Haile for possible w/u # CKD baseline Cr 1.3 -- now 1.7 2/2 to lasix #HTN \ resumed meds have been adjusted per cardio bystolic / amlodipine / benicar as out patient ( currently on valsartan ) #HLD continue with statins / well tolerated follow LFTs # arrhythmia, hx of tachy-audrey s/p PPM cked as out patient via Cardiology Per Cardiology note ---Paroxysmal atrial fibrillation -H/O PAFIB, WITH EVIDENCE OF SUBOPTIMAL HR CONTROL ON PPM CHECK 06/20 OUTSIDE MD OFFICE, PER HIS NOTES. -HAS BEEN ON AMIO FROM BEFORE, NO PAF SEEN ON PM CHECK IN OFFICE (TSH, LFT'S WNL ON AMIO 03/21). -S/P WATCHMAN (LA appendage closure device) 05/23. POSTOP WATCHMAN AC PROTOCOL: SHE HAS COMPLETED 6 WKS XARELTO + ASA, NOW IN MIDST OF 6 WKS ASA + PLAVIX, THEN ASA 81 INDEFINITELY. -CONTINUE ASA 81 AND PLAVIX FOR NOW -HERE WITH ANEMIA (NEW VS 03/21)--IF SIGNS OF GIB ON W/U, WILL HAVE LOW THRESHOLD TO HOLD PLAVIX AT A MINIMUM, AND WILL D/W EP IN THAT EVENT ---Calcific aortic stenosis -MODERATE WITH 12/19 STUDY GRADIENTS 35/20 AND PLANIMETRY LINDA >1.0, with LINDA by continuity equation estimated at <1.0...doubt severe . -PRESERVED S2 SPLIT AUDIBLE ON EXAM. -NOW WITH NEW HFPEF--SINCE THE ACUTE ANEMIA MAY BE THE TRIGGER, WOULD NOT PURSUE AVR AT THIS POINT. OBSERVE CLINICAL COURSE. as per Dr Vitale this am can stop plavix and continue on ASA
[2017-07-11] MEDS: BISACODYL 5 MG TABLET.DR (FP) PO PRN (13:22)
[2017-07-11] MEDS ORDERED: ACETAMINOPHEN 325 MG TABLET (FP) PO ONE (16:30)
[2017-07-11] MEDS: ATORVASTATIN CA 40 MG TABLET (FP) PO SCH (22:15)
[2017-07-11] MEDS: MIRTAZAPINE 15 MG TABLET (FP) PO SCH (22:16)
[2017-07-12] MEDS: LEVOTHYROXINE NA 25 MCG TABLET (FP) PO SCH (06:32)
[2017-07-12 07:58] LABS: EOS % 4.7 % (0-4.5); HEMATOCRIT 31.2 % (32.4-45.2); HEMOGLOBIN 10.5 GM/dL (10.7-15.3); LYMPH % 12.6 % (8-40); MCH 32.4 pg (25.7-33.7); MCHC 33.6 g/dl (32.0-36.0); MEAN CELL VOLUME 96.3 fl (80-96); MEAN PLT VOLUME 8.5 fl (7.5-11.1); MONO % 11.9 % (3.8-10.2); NEUT % 69.8 % (42.8-82.8); PLATELET COUNT 323 K/MM3 (134-434); RBC 3.24 M/mm3 (3.60-5.2); RDW 15.4 % (11.6-15.6); WHITE BLOOD COUNT 10.3 K/mm3 (4.0-10.0)
[2017-07-12 08:25] LABS: ANION GAP 7 (8-16); BLOOD UREA NITROGEN 31 mg/dL (7-18); CALCIUM 8.5 mg/dL (8.5-10.1); CHLORIDE 101 mmol/L (98-107); CO2 29 mmol/L (21-32); GLUCOSE,RANDOM 86 mg/dL (74-106); POTASSIUM 4.2 mmol/L (3.5-5.1); SODIUM 137 mmol/L (136-145)
[2017-07-12 08:27] LABS: CREATININE 1.5 mg/dL (0.55-1.02)
[2017-07-12] MEDS: ASPIRIN COATED 81 MG TABLET.EC PO SCH (10:14)
[2017-07-12] MEDS: PANTOPRAZOLE 40 MG TABLET (FP) PO SCH (10:14)
[2017-07-12] MEDS: CHOLECALCIFEROL (VITAMIN D3) 1,000 UNIT TABLET (FP) PO SCH (10:14)
[2017-07-12] MEDS: VALSARTAN 80 MG TABLET (UD) PO SCH (10:14)
[2017-07-12] MEDS: FOLIC ACID 1 MG TABLET (FP) PO SCH (10:14)
[2017-07-12] MEDS: AMIODARONE HCL 200 MG TABLET (FP) PO SCH (10:14)
[2017-07-12] MEDS: BISACODYL 5 MG TABLET.DR (FP) PO PRN (12:07)
[2017-07-12] MEDS: NEBIVOLOL 2.5 MG TABLET (FP) PO SCH (21:00)
[2017-07-12] MEDS: ATORVASTATIN CA 40 MG TABLET (FP) PO SCH (22:50)
[2017-07-12] MEDS: MIRTAZAPINE 15 MG TABLET (FP) PO SCH (22:50)
[2017-07-13] MEDS: LEVOTHYROXINE NA 25 MCG TABLET (FP) PO SCH (06:32)
[2017-07-13 06:56] VITALS: TEMP 98.2
[2017-07-13 07:25] LABS: BASO % 1.4 % (0-2.0); EOS % 4.3 % (0-4.5); HEMATOCRIT 31.9 % (32.4-45.2); HEMOGLOBIN 10.8 GM/dL (10.7-15.3); LYMPH % 14.7 % (8-40); MCH 32.5 pg (25.7-33.7); MCHC 33.7 g/dl (32.0-36.0); MEAN CELL VOLUME 96.4 fl (80-96); MEAN PLT VOLUME 8.4 fl (7.5-11.1); MONO % 11.4 % (3.8-10.2); NEUT % 68.2 % (42.8-82.8); PLATELET COUNT 360 K/MM3 (134-434); RBC 3.31 M/mm3 (3.60-5.2); RDW 14.7 % (11.6-15.6); WHITE BLOOD COUNT 8.7 K/mm3 (4.0-10.0)
[2017-07-13 07:53] LABS: ANION GAP 6 (8-16); BLOOD UREA NITROGEN 25 mg/dL (7-18); CALCIUM 8.7 mg/dL (8.5-10.1); CHLORIDE 102 mmol/L (98-107); CO2 31 mmol/L (21-32); CREATININE 1.3 mg/dL (0.55-1.02); GLUCOSE,RANDOM 87 mg/dL (74-106); POTASSIUM 4.6 mmol/L (3.5-5.1); SODIUM 139 mmol/L (136-145)
[2017-07-13] MEDS ORDERED: PT OWN MED DRAWER 7, Y5N ONE (10:12)
[2017-07-13] MEDS: CHOLECALCIFEROL (VITAMIN D3) 1,000 UNIT TABLET (FP) PO SCH (10:17)
[2017-07-13] MEDS: ASPIRIN COATED 81 MG TABLET.EC PO SCH (10:17)
[2017-07-13] MEDS: PANTOPRAZOLE 40 MG TABLET (FP) PO SCH (10:17)
[2017-07-13] MEDS: AMIODARONE HCL 200 MG TABLET (FP) PO SCH (10:17)
[2017-07-13] MEDS: FOLIC ACID 1 MG TABLET (FP) PO SCH (10:17)
[2017-07-13] MEDS: VALSARTAN 80 MG TABLET (UD) PO SCH (10:18)
[2017-07-13] MEDS: NEBIVOLOL 2.5 MG TABLET (FP) PO SCH (10:18)
--- NOTE | 2017-07-13 10:40 | PN ---
Progress Note (short form) - Note Progress Note: in bed comfortable do dyspnea s/p transfusion Vital Signs Period Temp Pulse Resp BP Sys/Garcia Pulse Ox Last 24 Hr 97.8 F-99 F 60-65 18-20 106-137/41-54 97-99 neck supple no JVD heart S1/S2 Lungs decreased BS both bases left >right no wheezing / rales appreciated abd soft non tender ext no edema hbg > 10 stool guiacs pnding Echo 12/2016: 1. The left ventricular size is normal. 2. Overall left ventricular systolic function is normal with, an EF between 55 - 65 %. 3. The diastolic filling pattern is normal. 4. No regional wall motion abnormalities were noted within visualized territories. 5. The right ventricle is normal in size and function. 6. Left atrium is mildly dilated by volume. 7. Moderate aortic stenosis with peak/mean pressure gradient of 35 / 20 mmHg. LINDA by continuity equation is 0.8 cm-squared, however LINDA by planimetry appears > 1.0 cm-squared. 8. Mild mitral regurgitation is present. 9. Unable to estimate RVSP due to inadequate TR jet spectral doppler profile. Assmt # dyspnea / acute episode of CHF decreased sat on admission - required O2 TNI - negative / EKG no acute changes BNP -7900 / CXR c/w CHF admits dietary indiscretion anemia probable component of Dyspnea s/p transfusion -- well tolerated follow lytes -- replace as needed # Anemia per cardio note baseline at Hgb 10 on NOAC s/p watchman -- now on asa stool guiac pending transfuse 1 unit p RBC # CKD baseline Cr 1.3 -- now 1.7 2/2 to lasix -- lasix on hold now improved #HTN \ resumed meds have been adjusted per cardio bystolic / amlodipine / benicar as out patient ( currently on valsartan ) #HLD continue with statins / well tolerated follow LFTs # arrhythmia, hx of tachy-audrey s/p PPM cked as out patient via Cardiology Per Cardiology note ---Paroxysmal atrial fibrillation -H/O PAFIB, WITH EVIDENCE OF SUBOPTIMAL HR CONTROL ON PPM CHECK 06/20 OUTSIDE MD OFFICE, PER HIS NOTES. -HAS BEEN ON AMIO FROM BEFORE, NO PAF SEEN ON PM CHECK IN OFFICE (TSH, LFT'S WNL ON AMIO 03/21). -S/P WATCHMAN (LA appendage closure device) 05/23. POSTOP WATCHMAN AC PROTOCOL: SHE HAS COMPLETED 6 WKS XARELTO + ASA, NOW IN MIDST OF 6 WKS ASA + PLAVIX, THEN ASA 81 INDEFINITELY. -CONTINUE ASA 81 AND PLAVIX FOR NOW -HERE WITH ANEMIA (NEW VS 03/21)--IF SIGNS OF GIB ON W/U, WILL HAVE LOW THRESHOLD TO HOLD PLAVIX AT A MINIMUM, AND WILL D/W EP IN THAT EVENT ---Calcific aortic stenosis -MODERATE WITH 12/19 STUDY GRADIENTS 35/20 AND PLANIMETRY LINDA >1.0, with LINDA by continuity equation estimated at <1.0...doubt severe . -PRESERVED S2 SPLIT AUDIBLE ON EXAM. -NOW WITH NEW HFPEF--SINCE THE ACUTE ANEMIA MAY BE THE TRIGGER, WOULD NOT PURSUE AVR AT THIS POINT. OBSERVE CLINICAL COURSE. as per Dr Vitale can stop plavix and continue on ASA
--- NOTE | 2017-07-13 10:50 | PN ---
Progress Note (short form) - Note Progress Note: in bed comfortable do dyspnea s/p transfusion Vital Signs Period Temp Pulse Resp BP Sys/Garcia Pulse Ox Last 24 Hr 97.8 F-99 F 60-65 18-20 106-137/41-54 97-99 neck supple no JVD heart S1/S2 Lungs decreased BS both bases left >right no wheezing / rales appreciated abd soft non tender ext no edema hbg > 10 CBC, BMP 07/13/17 06:40 07/13/17 06:40 stool guiacs negative Echo 12/2016: 1. The left ventricular size is normal. 2. Overall left ventricular systolic function is normal with, an EF between 55 - 65 %. 3. The diastolic filling pattern is normal. 4. No regional wall motion abnormalities were noted within visualized territories. 5. The right ventricle is normal in size and function. 6. Left atrium is mildly dilated by volume. 7. Moderate aortic stenosis with peak/mean pressure gradient of 35 / 20 mmHg. LINDA by continuity equation is 0.8 cm-squared, however LINDA by planimetry appears > 1.0 cm-squared. 8. Mild mitral regurgitation is present. 9. Unable to estimate RVSP due to inadequate TR jet spectral doppler profile. Assmt # dyspnea / acute episode of CHF decreased sat on admission - required O2 TNI - negative / EKG no acute changes BNP -7900 / CXR c/w CHF admits dietary indiscretion anemia probable component of Dyspnea s/p transfusion -- well tolerated follow lytes -- replace as needed # Anemia per cardio note baseline at Hgb 10 on NOAC s/p watchman -- now on asa stool guiac negative transfuse 1 unit p RBC discussed with daughter Pamela - will follow cbc as out patient if continued drop will refer to GI as out patient she understands and agrees # CKD baseline Cr 1.3 -- now 1.7 2/2 to lasix -- lasix on hold now improved Cr back to baseline #HTN \ resumed meds have been adjusted per cardio bystolic / amlodipine / benicar as out patient ( currently on valsartan ) #HLD continue with statins / well tolerated follow LFTs # arrhythmia, hx of tachy-audrey s/p PPM cked as out patient via Cardiology Per Cardiology note ---Paroxysmal atrial fibrillation -H/O PAFIB, WITH EVIDENCE OF SUBOPTIMAL HR CONTROL ON PPM CHECK 06/20 OUTSIDE MD OFFICE, PER HIS NOTES. -HAS BEEN ON AMIO FROM BEFORE, NO PAF SEEN ON PM CHECK IN OFFICE (TSH, LFT'S WNL ON AMIO 03/21). -S/P WATCHMAN (LA appendage closure device) 05/23. POSTOP WATCHMAN AC PROTOCOL: SHE HAS COMPLETED 6 WKS XARELTO + ASA, NOW IN MIDST OF 6 WKS ASA + PLAVIX, THEN ASA 81 INDEFINITELY. -CONTINUE ASA 81 AND PLAVIX FOR NOW -HERE WITH ANEMIA (NEW VS 03/21)--IF SIGNS OF GIB ON W/U, WILL HAVE LOW THRESHOLD TO HOLD PLAVIX AT A MINIMUM, AND WILL D/W EP IN THAT EVENT ---Calcific aortic stenosis -MODERATE WITH 12/19 STUDY GRADIENTS 35/20 AND PLANIMETRY LINDA >1.0, with LINDA by continuity equation estimated at <1.0...doubt severe . -PRESERVED S2 SPLIT AUDIBLE ON EXAM. -NOW WITH NEW HFPEF--SINCE THE ACUTE ANEMIA MAY BE THE TRIGGER, WOULD NOT PURSUE AVR AT THIS POINT. OBSERVE CLINICAL COURSE. as per Dr Vitale can stop plavix and continue on ASA Ok to d/c home today out pte PT
--- NOTE | 2017-07-13 11:01 | DS ---
Physical Examination Vital Signs: Vital Signs Temperature 98.2 F 07/13/17 06:00 Pulse Rate 74 07/13/17 06:00 Respiratory Rate 20 07/13/17 06:00 Blood Pressure 118/48 07/13/17 06:00 O2 Sat by Pulse Oximetry (%) 97 07/12/17 21:00 Findings/Remarks: 07/09/17 09:45 86yo woman with PMH of Afib, HTN, HLD, pleural effusion who presents with sob and nausea since this morning. No emesis. She woke up this morning to use the bathroom and when getting back into bed she reports dyspnea and accessory muscle use. Reports mild dry cough. Denies fever, chills, CP, ELIAS. No diarrhea or melena. At baseline she can walk several blocks using her walker without dyspnea. No recent travel or sick contacts. PSx: Watchman procedure approximately 2 months ago Constitutional: Yes: Well Nourished, No Distress, Calm Eyes: Yes: Conjunctiva Clear, EOM Intact HENT: Yes: Atraumatic, Normocephalic Neck: Yes: Supple, Trachea Midline Cardiovascular: Yes: Regular Rate and Rhythm Respiratory: Yes: CTA Bilaterally. No: Rales, Rhonchi, SOB, Wheezes Gastrointestinal: Yes: Normal Bowel Sounds Breast(s): Yes: WNL Musculoskeletal: Yes: WNL Extremities: No: Cold, Cool, Cyanosis, Deformity Edema: No Peripheral Pulses: Left Radial: 1+, Right Radial: 1+, Left Doralis Pedis: 1+, Right Dorsalis Pedis: 1+, Left Femoral: 1+, Right Femoral: 1+ Integumentary: Yes: WNL Neurological: Yes: Alert, Oriented, Confusion (forgetful at times but oriented X3) ...Motor Strength: WNL Psychiatric: Yes: Alert, Oriented Labs: CBC, BMP 07/13/17 06:40 07/13/17 06:40 Discharge Summary Reason For Visit: ACUTE ON CHRONIC CHF Current Active Problems CHF exacerbation (Acute) Condition: Improved - Instructions Referrals: Shefali Yang [Primary Care Provider] - Disposition: HOME - Home Medications Comprehensive Discharge Medication List: Ambulatory Orders Acetaminophen 650 mg PO ASDIR 07/09/17 Amiodarone HCl 100 mg PO DAILY 07/09/17 Amlodipine Besylate 5 mg PO DAILY 07/09/17 Aspirin [ASA -] 81 mg PO DAILY 07/09/17 Bisacodyl [Dulcolax -] 5 mg PO ONCE 07/09/17 Cholecalciferol (Vitamin D3) [Vitamin D3] 50,000 unit PO MONTHLY 07/09/17 Clopidogrel Bisulfate [Clopidogrel] 75 mg PO DAILY 07/09/17 Cyanocobalamin (Vitamin B-12) [Vitamin B-12] 1,000 mcg PO DAILY 07/09/17 Ferrous Sulfate 325 mg PO BID 07/09/17 Folic Acid 1 mg PO DAILY 07/09/17 Levothyroxine [Synthroid -] 25 mcg PO ASDIR 07/09/17 Mirtazapine 30 mg PO DAILY 07/09/17 Nebivolol HCl [Bystolic] 2.5 mg PO DAILY 07/09/17 Nystatin [Nyamyc] 1 appful TP ASDIR 07/09/17 Olmesartan Medoxomil 40 mg PO DAILY 07/09/17 Omeprazole 40 mg PO DAILY 07/09/17 Pravastatin Sodium [Pravachol (Nf)] 20 mg PO HS 07/09/17 Rivastigmine 1 each TD DAILY 07/09/17 Vit C/E/Zn/Coppr/Lutein/Zeaxan [Preservision Areds 2 Softgel] 1 each PO BID 12/19
[2017-07-13 11:36] VITALS: BP 136/66; PULSE 80
== END 2017-07-13 12:04 | disposition home or self-care (01) | DRG 291 ==
LOC: JER 09:00 → JERBED 11:54 → J5S 14:09 → OBSVTOIN 07-11 11:04
PROVIDERS: ADMIT Family Medicine; ATTEND Family Medicine
DX: I13.0 Hypertensive heart and chronic kidney disease with heart failure and stage 1 through stage 4 chronic kidney disease, or unspecified chronic kidney disease (principal); I50.31 Acute diastolic (congestive) heart failure; E78.5 Hyperlipidemia, unspecified; D64.9 Anemia, unspecified; N18.9 Chronic kidney disease, unspecified; I35.0 Nonrheumatic aortic (valve) stenosis; I48.0 Paroxysmal atrial fibrillation; Z87.891 Personal history of nicotine dependence; Z95.0 Presence of cardiac pacemaker
CPT/HCPCS: 36415; 36430; 71010-TC; 80048; 80053; 82272; 82550; 83735; 83880; 84443; 84484; 85025; 86850; 86900; 86901; 86922; 93005; 93010; 97116-GP; 97161-GP; 99283-25; G0378; P9038; P9058